=== PATIENT | female | born 1970 | race Caucasian/White ===

== ENCOUNTER 2016-11-23 10:40 | Emergency (ER) | payer BC, OTHER ==
--- NOTE | 2016-11-23 11:23 | ED NURSING NOTES ---
Clinical Report - Nurses [facility] [address] [place] [address] 11/23/2016 10:41 [id number] TRI[facility] Triage time 10:52. Acuity: LEVEL 3. Chief Complaint: INJURY TO FOREHEAD. 10:57 11/23/16. Alert. No acute distress. RENE COMA SCORE: Rene Coma Scale: 15- eyes open spontaneously (4); best verbal response- oriented x 4 (5); best motor response- obeys commands (6). --10:57 Zaria Bradford R.N. 10:51 11/23/16. BP: 112/70. HR: 67. RR: 16. O2 saturation: 100% on room air. Temp: 97.7 F (oral). Pain level now 4/10. --10:57 Zaria Bradford R.N. Weight: 53.5 kg stated. Height/Length: 60 inches Per Patient. BMI: 23. --10:54 Zaria Bradford R.N. Medications ALPRAZolam Oral. --10:56 Zaria Bradford R.N. Allergies Penicillins. --10:56 Zaria Bradford R.N. History ( called pt X2 in [facility] @1044, unable to locate pt. Pt not in waiting area or at front elevator operator. Registration staff also unable to locate patient.). --10:47 Zaria Bradford R.N. Primary physician (10:50). ( leaned forward while sitting on couch and knocked head on coffee table. C/O headache since last night, and "lazy left eye" although pupils are tracking accordingly. C/O frontal head pain.). This occurred last night. Occurred at home. 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 SOCIAL HX: Never smoker. No alcohol use or drug use. FALL RISK ASSESSMENT: Fall risk assessment completed. No fall risk identified. NUTRITIONAL RISK ASSESSMENT: The nutritional risk assessment revealed no deficiencies. FUNCTIONAL ASSESSMENT: Functional assessment: no impairments noted. LEARNING NEEDS ASSESSMENT: The learning needs assessment revealed no barriers. SKIN INTEGRITY ASSESSMENT: Skin integrity risk assessment completed. No skin integrity risk identified. --10:57 Zaria Bradford R.N. PROBLEMS: Migraine Headache. Paresthesia. Abdominal Pain. Ovarian Cyst. Atypical Chest Pain. Headache. Loss of Vision. Vertigo. Anxiety Reaction. Constipation. Immunizations. LNMP - Last Normal Menstrual Period. --10:56 Zaria Bradford R.N. ADDITIONAL SURGERIES: Colonoscopy. . --10:56 Zaria Bradford R.N. Bunion removal. --10:57 Zaria Bradford R.N. Interventions ID band on patient. To treatment room. --10:57 Zaria Bradford R.N. PHYSICAL ASSESSMENT 10:58 11/23/16. Ambulatory to room. GENERAL / NEURO / PSYCH: Alert. Oriented X 4. Appears in no acute distress. Pupillary exam: Right pupil 5mm, round and briskly reactive to light directly. Left pupil: 5mm, round and briskly reactive to light directly. HEENT: Forehead: tenderness. Head non-tender. Pupils equal, round and reactive to light. ( FAST negative). No swelling of head. Mucous membranes are pink. RESPIRATORY: Respirations not labored. CVS: Capillary refill less than 2 seconds. SKIN: Skin is warm and dry. --10:58 Zaria Bradford R.N. NURSING PROGRESS NOTES 10:58 11/23/16. The plan of care for this patient has been created. Patient gowned. Call light placed in reach. Bed placed in lowest position. Brakes of bed on. Patient ready for evaluation- chart flagged. --10:58 Zaria Bradford R.N. DISPOSITION / DISCHARGE Departure time: 1134Nov 23 2016. Condition at departure: improved and stable. No learning barriers present. Discharge instructions provided and reviewed with the patient. Reviewed medication(s) side effects, precautions, dosing and course information. Prescription(s) given to the patient. Patient verbalized understanding. Written instructions provided in Malian. The patient was discharged by the physician. She was discharged home. She left the Emergency Department ambulatory and via private vehicle. Patient driving. --15:30 Cheyanne Cosme R.N. 15:29 11/23/16. BP: 112/65. HR: 69. RR: 12. O2 saturation: 99% on room air. Temp: 98.2 F (oral). --15:30 Cheyanne Cosme R.N. Locked/Released at 11/23/2016 15:31 by Cheyanne Cosme R.N.
--- NOTE | 2016-11-23 11:23 | ED NURSING NOTES ---
Clinical Report - Nurses [facility] [address] [place] [address] 11/23/2016 10:41 [id number] TRI[facility] Triage time 10:52. Acuity: LEVEL 3. Chief Complaint: INJURY TO FOREHEAD. 10:57 11/23/16. Alert. No acute distress. RENE COMA SCORE: Rene Coma Scale: 15- eyes open spontaneously (4); best verbal response- oriented x 4 (5); best motor response- obeys commands (6). --10:57 Zaria Bradford R.N. 10:51 11/23/16. BP: 112/70. HR: 67. RR: 16. O2 saturation: 100% on room air. Temp: 97.7 F (oral). Pain level now 4/10. --10:57 Zaria Bradford R.N. Weight: 53.5 kg stated. Height/Length: 60 inches Per Patient. BMI: 23. --10:54 Zaria Bradford R.N. Medications ALPRAZolam Oral. --10:56 Zaria Bradford R.N. Allergies Penicillins. --10:56 Zaria Bradford R.N. History ( called pt X2 in [facility] @1044, unable to locate pt. Pt not in waiting area or at front line supervisor. Registration staff also unable to locate patient.). --10:47 Zaria Bradford R.N. Primary physician (10:50). ( leaned forward while sitting on couch and knocked head on coffee table. C/O headache since last night, and "lazy left eye" although pupils are tracking accordingly. C/O frontal head pain.). This occurred last night. Occurred at home. 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 SOCIAL HX: Never smoker. No alcohol use or drug use. FALL RISK ASSESSMENT: Fall risk assessment completed. No fall risk identified. NUTRITIONAL RISK ASSESSMENT: The nutritional risk assessment revealed no deficiencies. FUNCTIONAL ASSESSMENT: Functional assessment: no impairments noted. LEARNING NEEDS ASSESSMENT: The learning needs assessment revealed no barriers. SKIN INTEGRITY ASSESSMENT: Skin integrity risk assessment completed. No skin integrity risk identified. --10:57 Zaria Bradford R.N. PROBLEMS: Migraine Headache. Paresthesia. Abdominal Pain. Ovarian Cyst. Atypical Chest Pain. Headache. Loss of Vision. Vertigo. Anxiety Reaction. Constipation. Immunizations. LNMP - Last Normal Menstrual Period. --10:56 Zaria Bradford R.N. ADDITIONAL SURGERIES: Colonoscopy. . --10:56 Zaria Bradford R.N. Bunion removal. --10:57 Zaria Bradford R.N. Interventions ID band on patient. To treatment room. --10:57 Zaria Bradford R.N. PHYSICAL ASSESSMENT 10:58 11/23/16. Ambulatory to room. GENERAL / NEURO / PSYCH: Alert. Oriented X 4. Appears in no acute distress. Pupillary exam: Right pupil 5mm, round and briskly reactive to light directly. Left pupil: 5mm, round and briskly reactive to light directly. HEENT: Forehead: tenderness. Head non-tender. Pupils equal, round and reactive to light. ( FAST negative). No swelling of head. Mucous membranes are pink. RESPIRATORY: Respirations not labored. CVS: Capillary refill less than 2 seconds. SKIN: Skin is warm and dry. --10:58 Zaria Bradford R.N. NURSING PROGRESS NOTES 10:58 11/23/16. The plan of care for this patient has been created. Patient gowned. Call light placed in reach. Bed placed in lowest position. Brakes of bed on. Patient ready for evaluation- chart flagged. --10:58 Zaria Bradford R.N. DISPOSITION / DISCHARGE Departure time: 1134Nov 23 2016. Condition at departure: improved and stable. No learning barriers present. Discharge instructions provided and reviewed with the patient. Reviewed medication(s) side effects, precautions, dosing and course information. Prescription(s) given to the patient. Patient verbalized understanding. Written instructions provided in Eritrean. The patient was discharged by the physician. She was discharged home. She left the Emergency Department ambulatory and via private vehicle. Patient driving. --15:30 Cheyanne Cosme R.N. 15:29 11/23/16. BP: 112/65. HR: 69. RR: 12. O2 saturation: 99% on room air. Temp: 98.2 F (oral). --15:30 Cheyanne Cosme R.N. Locked/Released at 11/23/2016 15:31 by Cheyanne Cosme R.N.
--- NOTE | 2016-11-23 11:26 | ED CLINICAL REPORT ---
Clinical Report - Physicians/Mid Levels Located Within [facility] [address] [place] [address] 11/23/2016 10:41 Patient: LINDA CISNEROS Arrived- By private vehicle. Historian- patient. HISTORY OF PRESENT ILLNESS Location of injuries- (forehead). Chief Complaint: INJURY TO HEAD. The injury occurred today. Occurred at home. (hit head on coffee table while trying to look for something under the couch). The patient complains of moderate pain. The patient sustained a blow to the head and was dazed. No neck pain, loss of consciousness or seizure. (Reports no nausea, vomiting, changes in vision, numbness, tingling, weakness. Patient reports no other injury to the neck, chest, abdomen, pelvis, extremities, or back.). REVIEW OF SYSTEMS All systems otherwise negative, except as recorded above. PAST HISTORY See nurses notes. Medications: ALPRAZolam Oral. Allergies: Penicillins. SOCIAL HISTORY Never smoker. No alcohol use or drug use. Is a local resident. ADDITIONAL NOTES The nursing notes have been reviewed. PHYSICAL EXAM Vital Signs: 11/23/2016 10:51 BP: 112/70. HR: 67. RR: 16. O2 saturation: 100%. Temp: 97.7 F. Blood pressure normal. Oxygen saturation normal. Appearance: Alert. No acute distress. Head: No swelling of head. No Chi's sign or raccoon eyes. (Superficial abrasion to the left superior forehead). Eyes: Pupils equal, round and reactive to light. Pupillary exam: Right pupil round and reactive to light directly and consensually and with accommodation. Left pupil: round and reactive to light directly and consensually and with accommodation. EOM intact. No ocular injury. ENT: No dental injury. No hemotympanum. Pharynx normal. No malocclusion. Neck: No decreased ROM or muscle spasm in the neck. No pain with movement of head/neck. Painless ROM. Neck non-tender. No vertebral tenderness. CVS: Heart sounds normal. Pulses normal. Respiratory: Breath sounds normal. Chest nontender. Abdomen: Soft and nontender. No organomegaly. Back: No tenderness. ROM normal. Skin: Skin intact. Skin warm and dry. Normal skin color. Normal skin turgor. Extremities: Normal inspection. Pelvis stable. Extremities atraumatic. No lower extremity edema. Neuro: [place] Coma Scale: 15- eyes open spontaneously (4); best verbal response- oriented x 3 (5); best motor response- obeys commands (6). Oriented X 3. No alteration in mental status. Not disoriented. Mood/affect normal. Speech normal. No cranial nerve deficit. No motor deficit. Normal gait. No sensory deficit. PROGRESS AND PROCEDURES Course of Care: the patient is a pleasant 46-year-old female presenting for evaluation of head injury. After performing a thorough physical examination and history, do not the patient needs a CT scan of the head [place] head CT scan rule. Patient has a nonfocal neurological examination. No concerning signs for basilar skull fracture. Patient otherwise has a low mechanism of injury without any red flags for significant head injury. Had discussion with patient in regards to the risks and benefits of CT scan. The patient was also in agreement with the treatment and plan. The patient is not on any blood thinners. Conservative management with symptom control will be recommended at this time. I discussion with patient in regards to her workup, diagnosis, home care, follow-up, and return precautions. All questions answered. The patient expressed understanding of these instructions and was agreeable to them. Disposition: Discharged. Condition: good. CLINICAL IMPRESSION Mild nausea (acute). No vomiting. Minor closed head injury. No loss of consciousness. (frontal). No memory loss, altered mental status or neurological deficit. INSTRUCTIONS Warnings: GENERAL WARNINGS: Return or contact your physician immediately if your condition worsens or changes unexpectedly, if not improving as expected, or if other problems arise. Specifically return if pain, vomiting, bleeding, breathing difficulty or fever. Your Current Medications: CONTINUE TAKING THE FOLLOWING MEDICATIONS: ALPRAZolam Oral. Prescription Medications: Zofran (orally disintegrating tablets) 4 mg: take 1 orally. Dispense ten (10). No refill. Substitution is permissible. Tramadol 50 mg: take 1 orally every 8 hours as needed for pain and stiffness. Dispense fifteen (15). No refills. Zofran ODT 4 mg: take 1 orally every 8 hours as needed for nausea and vomiting. Dispense ten (10). No refill. Substitution is permissible. OTC Medications: Acetaminophen (available over the counter): take according to label instructions. Motrin (available over the counter): take according to label instructions. Follow-up: Return to the emergency department as needed. Follow up with your doctor in one week. Reason for referral: recheck today's concerns. Summary of care provided to patient via paper. Screening today revealed the patient's blood pressure to be in the normal range. The patient should follow up with a primary care provider for blood pressure management. Understanding of the discharge instructions verbalized by patient. (Electronically signed by Rashard Valenzuela Dr. 11/27/2016 5:33)
--- NOTE | 2016-11-27 05:33 | ED DISCHARGE INSTRUCTIONS ---
Patient: LINDA CISNEROS General Instructions [facility] VisitID: [id number] [place] [address] 46y, F Registration Date/Time: 11/23/2016 Mild nausea (acute). No vomiting. Minor closed head injury. No loss of consciousness. (frontal). No memory loss, altered mental status or neurological deficit. INSTRUCTIONS Warnings: GENERAL WARNINGS: Return or contact your physician immediately if your condition worsens or changes unexpectedly, if not improving as expected, or if other problems arise. Specifically return if pain, vomiting, bleeding, breathing difficulty or fever. Your Current Medications: CONTINUE TAKING THE FOLLOWING MEDICATIONS: ALPRAZolam Oral. Prescription Medications: Zofran (orally disintegrating tablets) 4 mg: take 1 orally. Dispense ten (10). No refill. Substitution is permissible. Tramadol 50 mg: take 1 orally every 8 hours as needed for pain and stiffness. Dispense fifteen (15). No refills. Zofran ODT 4 mg: take 1 orally every 8 hours as needed for nausea and vomiting. Dispense ten (10). No refill. Substitution is permissible. OTC Medications: Acetaminophen (available over the counter): take according to label instructions. Motrin (available over the counter): take according to label instructions. Follow-up: Return to the emergency department as needed. Follow up with your doctor in one week. Reason for referral: recheck today's concerns. Summary of care provided to patient via paper. Screening today revealed the patient's blood pressure to be in the normal range. The patient should follow up with a primary care provider for blood pressure management. Understanding of the discharge instructions verbalized by patient. ADDITIONAL INFORMATION Head Injury, No Wake-Up (Adult) You have had a head injury. It does not appear serious at this time. Symptoms of a more serious problem (concussion, bruising, or bleeding in the brain) may appear later. Therefore, watch for the WARNING SIGNS listed below. Home Care: Your healthcare provider will tell you whether its okay to drive. If so, you can drive yourself home. For the next day or so, be careful when driving or using heavy machinery until you are sure you have no delayed symptoms. During the next 24 hours someone must stay with you to check for the signs below. It is not necessary to stay awake or be awakened during the night. If you have swelling of the face or scalp, apply an ice pack (ice cubes in a plastic bag, wrapped in a towel) for 20 minutes. Do this every 1-2 hours until the swelling starts to go down. Do not use aspirin or ibuprofen (Motrin, Advil) after a head injury.You may use acetaminophen (Tylenol)to control pain, unless another pain medicine was prescribed. [NOTE: If you have chronic liver or kidney disease or ever had a stomach ulcer or GI bleeding, talk with your doctor before using these medicines.] For the next 24 hours: Do not take alcohol, sedatives or medicines that make you sleepy. Avoid strenuous activities. No lifting or straining. If you have had any symptoms of a concussion today (nausea, vomiting, dizziness, confusion, headache, memory loss or if you were knocked out), do not return to sports or any activity that could result in another head injury until all symptoms are gone and you have been cleared by your doctor. A second head injury before fully recovering from the first one can lead to serious brain injury. Follow Up with your doctor if symptoms are not improving after 24 hours, or as directed. [NOTE: A radiologist will review any X-rays or CT scans that were taken. We will notify you of any new findings that may affect your care.] Get Prompt Medical Attention if any of the followingWARNING SIGNS occur: Repeated vomiting Severe or worsening headache or dizziness Unusual drowsiness, or unable to awaken as usual Confusion or change in behavior or speech, memory loss, blurred vision Convulsion (seizure) Increasing scalp or face swelling Redness, warmth or pus from the swollen area Fluid drainage or bleeding from the nose or ears Concussion (No Wake-Up) A concussion happens when you hit your head with enough force to shake up the brain. This may cause you to lose consciousness be "knocked out" - but not always. Depending on how hard you hit your head, it will take from a few hours up to a few days to get better. Sometimes symptoms may last a few months or longer. This is called post-concussion syndrome. At first, you may have a headache, nausea, vomiting, or dizziness. You may also have problems concentrating or remembering things. This is normal. Symptoms should get better as the hours and days go by. Symptoms that get worse could be a sign of a more serious injury. This might be a bruise or bleeding in the brain. Thats why its important to watch for the warning signs listed below. Home care Follow these tips to help care for yourself at home: During the next day (24 hours) someone must stay with you to check for the signs below. If your face or scalp swells, apply an ice pack for 20 minutes every 1 to 2 hours. Do this until the swelling starts to go down. You can make an ice pack by putting ice cubes in a plastic bag and wrapping the bag in a towel. for 20 minutes every 1-2 hours until the swelling starts to go down. You may use acetaminophen to control pain, unless another pain medicine was prescribed. If you have chronic liver or kidney disease, talk with your doctor before using these medicines. Also talk with your doctor if you ever had a stomach ulcer or GI bleeding. For the next 24 hours: Dont drink alcohol or take sedatives or medicines that make you sleepy. Dont drive or operate machinery. Avoid doing anything strenuous. Dont lift or strain. Dont return to sports or any activity that could cause you to hit your head until all symptoms are gone and you have been cleared by your doctor. A second head injury before fully recovering from the first one can lead to serious brain injury. Follow-up care Follow up with your doctor in 1 week, or as directed. Note: A radiologist will review any X-rays or CT scans that were taken. You will be told of any new findings that may affect your care. When to seek medical care Get prompt medical attention if any of these occur: Repeated vomiting Headache or dizziness that is severe or gets worse Unusual drowsiness, or unable to wake up as usual Confusion or change in behavior or speech, or memory loss Blurred vision Convulsion (seizure) Swelling on the scalp or face that gets worse Redness, warmth, or pus from the swollen area Fluid draining from or bleeding from the nose or ears Ondansetron Oral disintegrating tablet What is this medicine? ONDANSETRON (on JAMES se kellee) is used to treat nausea and vomiting caused by chemotherapy. It is also used to prevent or treat nausea and vomiting after surgery. How should I use this medicine? These tablets are made to dissolve in the mouth. Do not try to push the tablet through the foil backing. With dry hands, peel away the foil backing and gently remove the tablet. Place the tablet in the mouth and allow it to dissolve, then swallow. While you may take these tablets with water, it is not necessary to do so. Talk to your sensory scientist regarding the use of this medicine in children. Special care may be needed. What side effects may I notice from receiving this medicine? Side effects that you should report to your doctor or health customer care agent as soon as possible: allergic reactions like skin rash, itching or hives, swelling of the face, lips, or tongue breathing problems dizziness fast or irregular heartbeat feeling faint or lightheaded, falls fever and chills swelling of the hands and feet tightness in the chest Side effects that usually do not require medical attention (report to your doctor or health customer care agent if they continue or are bothersome): constipation or diarrhea headache What may interact with this medicine? Do not take this medicine with any of the following medications: -apomorphine -cisapride -dofetilide -dronedarone -pimozide -thioridazine -ziprasidone This medicine may also interact with the following medications: -carbamazepine -phenytoin -rifampicin -tramadol -other medicines that prolong the QT interval (cause an abnormal heart rhythm) What if I miss a dose? If you miss a dose, take it as soon as you can. If it is almost time for your next dose, take only that dose. Do not take double or extra doses. Where should I keep my medicine? Keep out of the reach of children. Store between 2 and 30 degrees C (36 and 86 degrees F). Throw away any unused medicine after the expiration date. What should I tell my health care provider before I take this medicine? They need to know if you have any of these conditions: heart disease history of irregular heartbeat liver disease low levels of magnesium or potassium in the blood an unusual or allergic reaction to ondansetron, granisetron, other medicines, foods, dyes, or preservatives or trying to get breast-feeding What should I watch for while using this medicine? Check with your doctor or health customer care agent as soon as you can if you have any sign of an allergic reaction. Tramadol Hydrochloride Oral tablet What is this medicine? TRAMADOL (TRA ma dole) is a pain reliever. It is used to treat moderate to severe pain in adults. How should I use this medicine? Take this medicine by mouth with a full glass of water. Follow the directions on the prescription label. If the medicine upsets your stomach, take it with food or milk. Do not take more medicine than you are told to take. Talk to your sensory scientist regarding the use of this medicine in children. Special care may be needed. What side effects may I notice from receiving this medicine? Side effects that you should report to your doctor or health customer care agent as soon as possible: allergic reactions like skin rash, itching or hives, swelling of the face, lips, or tongue breathing difficulties, wheezing confusion itching light headedness or fainting spells redness, blistering, peeling or loosening of the skin, including inside the mouth seizures Side effects that usually do not require medical attention (report to your doctor or health customer care agent if they continue or are bothersome): constipation dizziness drowsiness headache nausea, vomiting What may interact with this medicine? Do not take this medicine with any of the following medications: MAOIs like Carbex, Eldepryl, Marplan, Nardil, and Parnate This medicine may also interact with the following medications: alcohol or medicines that contain alcohol antihistamines benzodiazepines bupropion carbamazepine or oxcarbazepine clozapine cyclobenzaprine digoxin furazolidone linezolid medicines for depression, anxiety, or psychotic disturbances medicines for migraine headache like almotriptan, eletriptan, frovatriptan, naratriptan, rizatriptan, sumatriptan, zolmitriptan medicines for pain like pentazocine, buprenorphine, butorphanol, meperidine, nalbuphine, and propoxyphene medicines for sleep muscle relaxants naltrexone phenobarbital phenothiazines like perphenazine, thioridazine, chlorpromazine, mesoridazine, fluphenazine, prochlorperazine, promazine, and trifluoperazine procarbazine warfarin What if I miss a dose? If you miss a dose, take it as soon as you can. If it is almost time for your next dose, take only that dose. Do not take double or extra doses. Where should I keep my medicine? Keep out of the reach of children. Store at room temperature between 15 and 30 degrees C (59 and 86 degrees F). Keep container tightly closed. Throw away any unused medicine after the expiration date. What should I tell my health care provider before I take this medicine? They need to know if you have any of these conditions: brain tumor depression drug abuse or addiction head injury if you frequently drink alcohol containing drinks kidney disease or trouble passing urine liver disease lung disease, asthma, or breathing problems seizures or epilepsy suicidal thoughts, plans, or attempt; a previous suicide attempt by you or a family member an unusual or allergic reaction to tramadol, codeine, other medicines, foods, dyes, or preservatives or trying to get breast-feeding What should I watch for while using this medicine? Tell your doctor or health customer care agent if your pain does not go away, if it gets worse, or if you have new or a different type of pain. You may develop tolerance to the medicine. Tolerance means that you will need a higher dose of the medicine for pain relief. Tolerance is normal and is expected if you take this medicine for a long time. Do not suddenly stop taking your medicine because you may develop a severe reaction. Your body becomes used to the medicine. This does NOT mean you are addicted. Addiction is a behavior related to getting and using a drug for a non-medical reason. If you have pain, you have a medical reason to take pain medicine. Your doctor will tell you how much medicine to take. If your doctor wants you to stop the medicine, the dose will be slowly lowered over time to avoid any side effects. You may get drowsy or dizzy. Do not drive, use machinery, or do anything that needs mental alertness until you know how this medicine affects you. Do not stand or sit up quickly, especially if you are an older patient. This reduces the risk of dizzy or fainting spells. Alcohol can increase or decrease the effects of this medicine. Avoid alcoholic drinks. You may have constipation. Try to have a bowel movement at least every 2 to 3 days. If you do not have a bowel movement for 3 days, call your doctor or health customer care agent. Your mouth may get dry. Chewing sugarless gum or sucking hard candy, and drinking plenty of water may help. Contact your doctor if the problem does not go away or is severe. Ondansetron Oral disintegrating tablet What is this medicine? ONDANSETRON (on JAMES se kellee) is used to treat nausea and vomiting caused by chemotherapy. It is also used to prevent or treat nausea and vomiting after surgery. How should I use this medicine? These tablets are made to dissolve in the mouth. Do not try to push the tablet through the foil backing. With dry hands, peel away the foil backing and gently remove the tablet. Place the tablet in the mouth and allow it to dissolve, then swallow. While you may take these tablets with water, it is not necessary to do so. Talk to your sensory scientist regarding the use of this medicine in children. Special care may be needed. What side effects may I notice from receiving this medicine? Side effects that you should report to your doctor or health customer care agent as soon as possible: allergic reactions like skin rash, itching or hives, swelling of the face, lips, or tongue breathing problems dizziness fast or irregular heartbeat feeling faint or lightheaded, falls fever and chills swelling of the hands and feet tightness in the chest Side effects that usually do not require medical attention (report to your doctor or health customer care agent if they continue or are bothersome): constipation or diarrhea headache What may interact with this medicine? Do not take this medicine with any of the following medications: -apomorphine -cisapride -dofetilide -dronedarone -pimozide -thioridazine -ziprasidone This medicine may also interact with the following medications: -carbamazepine -phenytoin -rifampicin -tramadol -other medicines that prolong the QT interval (cause an abnormal heart rhythm) What if I miss a dose? If you miss a dose, take it as soon as you can. If it is almost time for your next dose, take only that dose. Do not take double or extra doses. Where should I keep my medicine? Keep out of the reach of children. Store between 2 and 30 degrees C (36 and 86 degrees F). Throw away any unused medicine after the expiration date. What should I tell my health care provider before I take this medicine? They need to know if you have any of these conditions: heart disease history of irregular heartbeat liver disease low levels of magnesium or potassium in the blood an unusual or allergic reaction to ondansetron, granisetron, other medicines, foods, dyes, or preservatives or trying to get breast-feeding What should I watch for while using this medicine? Check with your doctor or health customer care agent as soon as you can if you have any sign of an allergic reaction. You have been given the following additional information: HEAD INJURY, No Wake-Up (Adult) Concussion, No Wake-Up Ondansetron Oral disintegrating tablet Tramadol Hydrochloride Oral tablet Ondansetron Oral disintegrating tablet (Electronically signed by Rashard Valenzuela Dr. 11/27/2016 5:33)
--- NOTE | 2016-11-27 05:34 | ED MAR SUMMARY ---
..... Medication Administration Record [facility] [address], [place] [id number] Patient: LINDA CISNEROS Visit ID: [id number] 46y, F Weight: 53.5 kg Height/Length: 60 in BMI: 23 ALLERGIES: Penicillins
--- NOTE | 2016-11-27 05:34 | ED MAR SUMMARY ---
..... Medication Administration Record [facility] [address] [place], [place] [id number] Patient: LINDA CISNEROS Visit ID: [id number] 46y, F Weight: 53.5 kg Height/Length: 60 in BMI: 23 ALLERGIES: Penicillins
--- NOTE | 2016-11-27 05:34 | ED MED RECONCILIATION SUMMARY ---
Patient: LINDA CISNEROS Medication Reconciliation Report [facility] VisitID: [id number] [address] [place] [address] 46y, F Registration Date/Time: 11/23/2016 Weight: 53.5 kg Height/Length: 60 in. BMI: 23.0 ALLERGIES: Penicillins The patient's Home Medications are listed below: CONTINUE TAKING THE FOLLOWING MEDICATIONS: ALPRAZolam Oral The source(s) of the original Home Medication information: Not obtained. The following Medications were given to the patient in the Emergency Department: None. The following Medications were prescribed to the patient: Acetaminophen (available over the counter): take according to label instructions. -- Rashard Valenzuela Dr. Motrin (available over the counter): take according to label instructions. -- Rashard Valenzuela Dr. Zofran (orally disintegrating tablets) 4 mg: take 1 orally. Dispense ten (10). No refill. Substitution is permissible. -- Rashard Valenzuela Dr. Tramadol 50 mg: take 1 orally every 8 hours as needed for pain and stiffness. Dispense fifteen (15). No refills. -- Rashard Valenzuela Dr. Zofran ODT 4 mg: take 1 orally every 8 hours as needed for nausea and vomiting. Dispense ten (10). No refill. Substitution is permissible. -- Rashard Valenzuela Dr.
--- NOTE | 2016-11-27 05:34 | ED MED RECONCILIATION SUMMARY ---
Patient: LINDA CISNEROS Medication Reconciliation Report [facility] VisitID: [id number] [address] [place] [address] 46y, F Registration Date/Time: 11/23/2016 Weight: 53.5 kg Height/Length: 60 in. BMI: 23.0 ALLERGIES: Penicillins The patient's Home Medications are listed below: CONTINUE TAKING THE FOLLOWING MEDICATIONS: ALPRAZolam Oral The source(s) of the original Home Medication information: Not obtained. The following Medications were given to the patient in the Emergency Department: None. The following Medications were prescribed to the patient: Acetaminophen (available over the counter): take according to label instructions. -- Rashard Valenzuela Dr. Motrin (available over the counter): take according to label instructions. -- Rashard Valenzuela Dr. Zofran (orally disintegrating tablets) 4 mg: take 1 orally. Dispense ten (10). No refill. Substitution is permissible. -- Rashard Valenzuela Dr. Tramadol 50 mg: take 1 orally every 8 hours as needed for pain and stiffness. Dispense fifteen (15). No refills. -- Rashard Valenzuela Dr. Zofran ODT 4 mg: take 1 orally every 8 hours as needed for nausea and vomiting. Dispense ten (10). No refill. Substitution is permissible. -- Rashard Valenzuela Dr.
== END 2016-11-23 11:35 | disposition home or self-care (01) ==
LOC: ED SRH 10:40
DX: S09.90XA Unspecified injury of head, initial encounter (principal); R11.0 Nausea; W22.8XXA Striking against or struck by other objects, initial encounter; Y93.89 Activity, other specified; Y92.009 Unspecified place in unspecified non-institutional (private) residence as the place of occurrence of the external cause; Y99.9 Unspecified external cause status; Z88.0 Allergy status to penicillin

== ENCOUNTER 2016-11-26 12:59 | Emergency (ER) | payer BC, OTHER ==
--- NOTE | 2016-11-26 13:57 | DIAGNOSTIC IMAGING REPORT ---
PROCEDURE: CT HEAD WITHOUT CONTRAST INDICATION: TRAUMA/INJURY TECHNIQUE: Axial CT images were acquired through the head. Coronal and sagittal reformations were created. COMPARISON: Head CT 05/31/2016 09/20/2013 FINDINGS: No intracranial hemorrhage or extraaxial fluid collections. Ventricles are normal in size, shape and position. There is no mass, mass effect or midline shift. The cardona-white matter differentiation is normal. There is no edema. The calvarium is intact. The paranasal sinuses and mastoid air cells are normally aerated. The extracranial soft tissues and orbits are normal. IMPRESSION: 1. No CT evidence of acute intracranial process. 2. Findings discussed with emergency department at 02:[address] scans at this facility use dose modulation, iterative reconstruction, and/or weight-based dosing when appropriate to reduce radiation dose to as low as reasonably achievable.
--- NOTE | 2016-11-26 14:11 | ED NURSING NOTES ---
Clinical Report - Nurses [facility] [address] [place] [address] 11/26/2016 13:02 [id number] TRI[facility] Triage time 13:31. Acuity: LEVEL 4. Chief Complaint: HEADACHE. Alert. No acute distress. RENE COMA SCORE: Rene Coma Scale: 15- eyes open spontaneously (4); best verbal response- oriented x 4 (5); best motor response- obeys commands (6). --14:16 Jessie Connolly R.N. 13:31 11/26/16. BP: 126/77. HR: 65. RR: 18. O2 saturation: 100% on room air. Temp: 97.7 F (oral). Pain level now: 410. --14:16 Jessie Connolly R.N. Weight: 53.5 kg stated. Height/Length: 60 inches Per Patient. BMI: 23. --14:15 Jessie Connolly R.N. Medications Vitamins/Minerals Oral. --14:14 Jessie Connolly R.N. Medication/allergy information source: the patient. --14:16 Jessie Connolly R.N. Allergies No Known Drug Allergy. --14:14 Jessie Connolly R.N. History Arrived by private vehicle. Historian: patient. Unaccompanied. Primary physician (Dionne). This started . ( leaned forward and struck head on table). PAST MEDICAL HX: Last normal menstrual period- Oct 2016. SOCIAL HX: Smoker- current status unknown (no). No alcohol use or drug use. FALL RISK ASSESSMENT: Fall risk assessment completed. No fall risk identified. FUNCTIONAL ASSESSMENT: Functional assessment: no impairments noted. LEARNING NEEDS ASSESSMENT: The learning needs assessment revealed no barriers. --14:16 Jessie Connolly R.N. PROBLEMS: Nausea. Migraine Headache. Paresthesia. Abdominal Pain. Ovarian Cyst. Atypical Chest Pain. Headache. Loss of Vision. Vertigo. Anxiety Reaction. Constipation. Immunizations. LNMP - Last Normal Menstrual Period. --14:14 Jessie Connolly R.N. ADDITIONAL SURGERIES: Bunion removal. Colonoscopy. . --14:14 Jessie Connolly R.N. Assessment GENERAL / NEURO / PSYCH: Alert. Oriented X 4. Appears in no acute distress. Patient appears calm and cooperative. RESPIRATORY: Respirations not labored. SKIN: Skin is warm and dry. --14:16 Jessie Connolly R.N. Interventions ID band on patient. To treatment room. --14:16 Jessie Connolly R.N. PHYSICAL ASSESSMENT 14:17 11/26/16. Ambulatory to room. Patient gowned. GENERAL / NEURO / PSYCH: Alert. Oriented X 4. Appears in no acute distress. Speech within normal limits. RESPIRATORY: Respirations not labored. SKIN: Skin is warm and dry. --14:17 Jessie Connolly R.N. NURSING PROGRESS NOTES 13:39 11/26/16. Patient gowned. Head of bed elevated. Lights dimmed. Call light placed in reach. Side rails up x 1. Bed placed in lowest position. Brakes of bed on. --13:39 Jessie Connolly R.N. Patient transported to [place] by stretcher with tech. --13:39 Jessie Connolly R.N. Patient returned from CT by stretcher. --14:17 Jessie Connolly R.N. 14:29 11/26/2016 Zofran ODT (Ondansetron) PO 4 mg given. Allergies verified and confirmed 5 rights. --14:29 Chuyita Plascencia 14:29 11/26/2016 Motrin PO 800 mg given. Allergies verified and confirmed 5 rights. --14:29 Chuyita Plascencia 14:29 11/26/2016 Tylenol (Acetaminophen) PO 650 mg given. Allergies verified and confirmed 5 rights. --14:29 Chuyita Plascencia. DISPOSITION / DISCHARGE Departure time: 1430. Condition at departure: improved and stable. No learning barriers present. Discharge instructions provided and reviewed with the patient. Reviewed medication(s). Patient verbalized understanding. Written instructions provided in Chadian. The patient was discharged by the physician assistant operations manager. She was discharged home. She left the Emergency Department ambulatory and via private vehicle. Patient driving. --14:30 Chuyita Plascencia 14:30 11/26/16. BP: 98/56. HR: 58. RR: 14. O2 saturation: 99%. Pain level now 02/14. --14:30 Chuyita Plascencia. Locked/Released at 11/26/2016 14:31 by Chuyita Plascencia,
--- NOTE | 2016-11-26 14:11 | ED ORDER SUMMARY ---
..... Patient: ILNDA CISNEROS OrderSheet [facility] VisitID: [id number] [address] [place] [address] 46y, F Registration Date/Time: 11/26/2016 ORDER SHEET Weight: 53.5 kg (stated) Allergies: No Known Drug Allergy GENERAL ORDERS: CT Head wo Cont Urgent (13:32 11/26/2016 EKoroleva P.A.-C) ([facility] MEDICATION ORDERS: Zofran ODT PO 4 mg (NOW) (14:14 11/26/2016 EKoroleva P.A.-C) (14:29 Donna) Motrin PO 800 mg (NOW) (14:14 11/26/2016 EKoroleva P.A.-C) (14:29 Donna) Tylenol PO 650 mg (NOW) (14:14 11/26/2016 EKoroleva P.A.-C) ([facility] IV FLUIDS: ORDER SHEET NOTES: [Electronically signed by Helena Edge P.A.-C (14:14 11/26/2016)] [Electronically signed by Chuyita Plascencia (14:31 11/26/2016)] [Electronically locked/signed by Chuyita Plascencia (14:11/26/2016)]
--- NOTE | 2016-11-26 14:11 | ED ORDER SUMMARY ---
..... Patient: LINDA CISNEROS OrderSheet [facility] VisitID: [id number] [address] [place] [address] 46y, F Registration Date/Time: 11/26/2016 ORDER SHEET Weight: 53.5 kg (stated) Allergies: No Known Drug Allergy GENERAL ORDERS: CT Head wo Cont Urgent (13:32 11/26/2016 EKoroleva P.A.-C) ([facility] MEDICATION ORDERS: Zofran ODT PO 4 mg (NOW) (14:14 11/26/2016 EKoroleva P.A.-C) (14:29 Donna) Motrin PO 800 mg (NOW) (14:14 11/26/2016 EKoroleva P.A.-C) (14:29 Donna) Tylenol PO 650 mg (NOW) (14:14 11/26/2016 EKoroleva P.A.-C) (14:29 [facility]) IV FLUIDS: ORDER SHEET NOTES: [Electronically signed by Helena Edge P.A.-C (14:14 11/26/2016)] [Electronically signed by Chuyita Plascencia (14:31 11/26/2016)] [Electronically locked/signed by Chuyita Plascencia (14:11/26/2016)]
--- NOTE | 2016-11-26 14:11 | ED CLINICAL REPORT ---
Clinical Report - Physicians/Mid Levels [facility] [address] [place] [address] 11/26/2016 13:02 [id number] Time Seen: 13:33 Nov 26 2016. Arrived- By private vehicle. Historian- patient. HISTORY OF PRESENT ILLNESS Location of injuries- (since fall on the ). Chief Complaint: INJURY TO HEAD. The patient sustained a blow. Fell. Occurred at home. The patient complains of moderate pain. The patient sustained a blow to the head and was dazed. No neck pain, loss of consciousness or seizure. (Patient fell from a seated position, into a marble table, incident occurred on the , consistent headache, has been taking Tylenol with no relief.). REVIEW OF SYSTEMS No hearing loss, bladder dysfunction or laceration. She has had nausea. All systems otherwise negative, except as recorded above. SOCIAL HISTORY No alcohol use. ADDITIONAL NOTES The nursing notes have been reviewed. PHYSICAL EXAM Appearance: Alert. No acute distress. No backboard or C-collar. (BP: 126/77. HR: 65. RR: 18. O2 saturation: 100% on room air. Temp: 97.7 F (oral).). Head: Head non-tender. No swelling of head. ENT: No dental injury. Neck: Painless ROM. Neck non-tender. No vertebral tenderness. CVS: Heart sounds normal. Pulses normal. Respiratory: Breath sounds normal. Chest nontender. No chest wall injury. Abdomen: Soft and nontender. Back: No tenderness. ROM normal. No tenderness or vertebral point tenderness. Skin: Skin intact. Skin warm. Extremities: Pelvis stable. Neuro: [place] Coma Scale: 15- eyes open spontaneously (4); best verbal response- oriented x 3 (5); best motor response- obeys commands (6). Oriented X 3. Mood/affect normal. Speech normal. No motor deficit. Normal gait. No sensory deficit. LABS, X-RAYS, AND EKG CT Head: (IMPRESSION: 1. No CT evidence of acute intracranial process. 2. Findings discussed with emergency department at 02:[address] scans at this facility use dose modulation, iterative reconstruction, and/or weight-based dosing when appropriate to reduce radiation dose to as low as reasonably achievable. Electronically Final signed by:Raul Jones MD 11/26/2016 2:00:48 PM). PROGRESS AND PROCEDURES Course of Care: Full range of motion of the cervical spine, patient with no CT evidence of hemorrhage, symptoms of the headache developed after fall, suspect concussion post fall. Patient otherwise stable, negative neuro exam in the ER. No otherwise systemic symptoms, no meningeal signs. Patient is stable. The patient's symptoms are unchanged. Patient/family counseled. Disposition: Discharged. Condition: good. CLINICAL IMPRESSION Head injury. INSTRUCTIONS Prescription Medications: Zofran (orally disintegrating tablets) 4 mg: take 1 orally every 6 hours for 3 days as needed for nausea. Dispense ten (10). No refill. Substitution is permissible. Ibuprofen 800 mg tablets: take 1 tablet orally every 8 hours as needed for pain. Dispense fifteen (15). No refill. OTC Medications: Tylenol ER 650 mg (available over the counter): take 1 orally every 6 hours for 3 days, as needed for fever. Dispense ten (10). No refill. Substitution is permissible. Follow-up: Follow up with your doctor Tuesday. Understanding of the discharge instructions verbalized. (Electronically signed by Helena Edge P.A.-C 11/26/2016 14:14)
--- NOTE | 2016-11-26 14:11 | ED CLINICAL REPORT ---
Clinical Report - Physicians/Mid Levels [facility] [address] [place] [address] 11/26/2016 13:02 [id number] Time Seen: 13:33 Nov 26 2016. Arrived- By private vehicle. Historian- patient. HISTORY OF PRESENT ILLNESS Location of injuries- (since fall on the ). Chief Complaint: INJURY TO HEAD. The patient sustained a blow. Fell. Occurred at home. The patient complains of moderate pain. The patient sustained a blow to the head and was dazed. No neck pain, loss of consciousness or seizure. (Patient fell from a seated position, into a marble table, incident occurred on the , consistent headache, has been taking Tylenol with no relief.). REVIEW OF SYSTEMS No hearing loss, bladder dysfunction or laceration. She has had nausea. All systems otherwise negative, except as recorded above. SOCIAL HISTORY No alcohol use. ADDITIONAL NOTES The nursing notes have been reviewed. PHYSICAL EXAM Appearance: Alert. No acute distress. No backboard or C-collar. (BP: 126/77. HR: 65. RR: 18. O2 saturation: 100% on room air. Temp: 97.7 F (oral).). Head: Head non-tender. No swelling of head. ENT: No dental injury. Neck: Painless ROM. Neck non-tender. No vertebral tenderness. CVS: Heart sounds normal. Pulses normal. Respiratory: Breath sounds normal. Chest nontender. No chest wall injury. Abdomen: Soft and nontender. Back: No tenderness. ROM normal. No tenderness or vertebral point tenderness. Skin: Skin intact. Skin warm. Extremities: Pelvis stable. Neuro: [place] Coma Scale: 15- eyes open spontaneously (4); best verbal response- oriented x 3 (5); best motor response- obeys commands (6). Oriented X 3. Mood/affect normal. Speech normal. No motor deficit. Normal gait. No sensory deficit. LABS, X-RAYS, AND EKG CT Head: (IMPRESSION: 1. No CT evidence of acute intracranial process. 2. Findings discussed with emergency department at 02:[address] scans at this facility use dose modulation, iterative reconstruction, and/or weight-based dosing when appropriate to reduce radiation dose to as low as reasonably achievable. Electronically Final signed by:Raul Jones MD 11/26/2016 2:00:48 PM). PROGRESS AND PROCEDURES Course of Care: Full range of motion of the cervical spine, patient with no CT evidence of hemorrhage, symptoms of the headache developed after fall, suspect concussion post fall. Patient otherwise stable, negative neuro exam in the ER. No otherwise systemic symptoms, no meningeal signs. Patient is stable. The patient's symptoms are unchanged. Patient/family counseled. Disposition: Discharged. Condition: good. CLINICAL IMPRESSION Head injury. INSTRUCTIONS Prescription Medications: Zofran (orally disintegrating tablets) 4 mg: take 1 orally every 6 hours for 3 days as needed for nausea. Dispense ten (10). No refill. Substitution is permissible. Ibuprofen 800 mg tablets: take 1 tablet orally every 8 hours as needed for pain. Dispense fifteen (15). No refill. OTC Medications: Tylenol ER 650 mg (available over the counter): take 1 orally every 6 hours for 3 days, as needed for fever. Dispense ten (10). No refill. Substitution is permissible. Follow-up: Follow up with your doctor Tuesday. Understanding of the discharge instructions verbalized. (Electronically signed by Helena Edge P.A.-C 11/26/2016 14:14)
--- NOTE | 2016-11-26 14:11 | ED NURSING NOTES ---
Clinical Report - Nurses [facility] [address] [place] [address] 11/26/2016 13:02 [id number] Triage time 13:31. Acuity: LEVEL 4. Chief Complaint: HEADACHE. Alert. No acute distress. RENE COMA SCORE: [place] Coma Scale: 15- eyes open spontaneously (4); best verbal response- oriented x 4 (5); best motor response- obeys commands (6). --14:16 Jessie Connolly R.N. 13:31 11/26/16. BP: 126/77. HR: 65. RR: 18. O2 saturation: 100% on room air. Temp: 97.7 F (oral). Pain level now: 410. --14:16 Jessie Connolly R.N. Weight: 53.5 kg stated. Height/Length: 60 inches Per Patient. BMI: 23. --14:15 Jessie Connolly R.N. Medications Vitamins/Minerals Oral. --14:14 Jessie Connolly R.N. Medication/allergy information source: the patient. --14:16 Jessie Connolly R.N. Allergies No Known Drug Allergy. --14:14 Jessie Connolly R.N. History Arrived by private vehicle. Historian: patient. Unaccompanied. Primary physician (Dionne). This started . ( leaned forward and struck head on table). PAST MEDICAL HX: Last normal menstrual period- Oct 2016. SOCIAL HX: Smoker- current status unknown (no). No alcohol use or drug use. FALL RISK ASSESSMENT: Fall risk assessment completed. No fall risk identified. FUNCTIONAL ASSESSMENT: Functional assessment: no impairments noted. LEARNING NEEDS ASSESSMENT: The learning needs assessment revealed no barriers. --14:16 Jessie Connolly R.N. PROBLEMS: Nausea. Migraine Headache. Paresthesia. Abdominal Pain. Ovarian Cyst. Atypical Chest Pain. Headache. Loss of Vision. Vertigo. Anxiety Reaction. Constipation. Immunizations. LNMP - Last Normal Menstrual Period. --14:14 Jessie Connolly R.N. ADDITIONAL SURGERIES: Bunion removal. Colonoscopy. . --14:14 Jessie Connolly R.N. Assessment GENERAL / NEURO / PSYCH: Alert. Oriented X 4. Appears in no acute distress. Patient appears calm and cooperative. RESPIRATORY: Respirations not labored. SKIN: Skin is warm and dry. --14:16 Jessie Connolly R.N. Interventions ID band on patient. To treatment room. --14:16 Jessie Connolly R.N. PHYSICAL ASSESSMENT 14:17 11/26/16. Ambulatory to room. Patient gowned. GENERAL / NEURO / PSYCH: Alert. Oriented X 4. Appears in no acute distress. Speech within normal limits. RESPIRATORY: Respirations not labored. SKIN: Skin is warm and dry. --14:17 Jessie Connolly R.N. NURSING PROGRESS NOTES 13:39 11/26/16. Patient gowned. Head of bed elevated. Lights dimmed. Call light placed in reach. Side rails up x 1. Bed placed in lowest position. Brakes of bed on. --13:39 Jessie Connolly R.N. Patient transported to [place] by stretcher with tech. --13:39 Jessie Connolly R.N. Patient returned from CT by stretcher. --14:17 Jessie Connolly R.N. 14:29 11/26/2016 Zofran ODT (Ondansetron) PO 4 mg given. Allergies verified and confirmed 5 rights. --14:29 Chuyita Plascencia 14:29 11/26/2016 Motrin PO 800 mg given. Allergies verified and confirmed 5 rights. --14:29 Chuyita Plascencia 14:29 11/26/2016 Tylenol (Acetaminophen) PO 650 mg given. Allergies verified and confirmed 5 rights. --14:29 Chuyita Plascencia. DISPOSITION / DISCHARGE Departure time: 1430. Condition at departure: improved and stable. No learning barriers present. Discharge instructions provided and reviewed with the patient. Reviewed medication(s). Patient verbalized understanding. Written instructions provided in [place]. The patient was discharged by the physician him assistant. She was discharged home. She left the Emergency Department ambulatory and via private vehicle. Patient driving. --14:30 Chuyita Plascencia 14:30 11/26/16. BP: 98/56. HR: 58. RR: 14. O2 saturation: 99%. Pain level now 02/14. --14:30 Chuyita Plascencia. Locked/Released at 11/26/2016 14:31 by Chuyita Plascencia,
--- NOTE | 2016-11-26 14:32 | ED MED RECONCILIATION SUMMARY ---
Patient: LINDA CISNEROS Medication Reconciliation Report [facility] VisitID: [id number] [address] [place] [address] 46y, F Registration Date/Time: 11/26/2016 Weight: 53.5 kg Height/Length: 60 in. BMI: 23.0 ALLERGIES: No Known Drug Allergy The patient's Home Medications are listed below: THE FOLLOWING MEDICATIONS NEED TO BE RECONCILED: Vitamins/Minerals Oral The source(s) of the original Home Medication information: patient The following Medications were given to the patient in the Emergency Department: Zofran ODT [PO] PO 4 mg, administered: 11/26/2016 2:29:00 PM Motrin [PO] PO 800 mg, administered: 11/26/2016 2:29:00 PM Tylenol [PO] PO 650 mg, administered: 11/26/2016 2:29:00 PM The following Medications were prescribed to the patient: Zofran (orally disintegrating tablets) 4 mg: take 1 orally every 6 hours for 3 days as needed for nausea. Dispense ten (10). No refill. Substitution is permissible. -- Helena Edge, P.A.-C Ibuprofen 800 mg tablets: take 1 tablet orally every 8 hours as needed for pain. Dispense fifteen (15). No refill. -- Helena Edge, P.A.-C Tylenol ER 650 mg (available over the counter): take 1 orally every 6 hours for 3 days, as needed for fever. Dispense ten (10). No refill. Substitution is permissible. -- Helena Edge, P.A.-C
--- NOTE | 2016-11-26 14:32 | ED MED RECONCILIATION SUMMARY ---
Patient: LINDA CISNEROS Medication Reconciliation Report [facility] VisitID: [id number] [address] [place] [address] 46y, F Registration Date/Time: 11/26/2016 Weight: 53.5 kg Height/Length: 60 in. BMI: 23.0 ALLERGIES: No Known Drug Allergy The patient's Home Medications are listed below: THE FOLLOWING MEDICATIONS NEED TO BE RECONCILED: Vitamins/Minerals Oral The source(s) of the original Home Medication information: patient The following Medications were given to the patient in the Emergency Department: Zofran ODT [PO] PO 4 mg, administered: 11/26/2016 2:29:00 PM Motrin [PO] PO 800 mg, administered: 11/26/2016 2:29:00 PM Tylenol [PO] PO 650 mg, administered: 11/26/2016 2:29:00 PM The following Medications were prescribed to the patient: Zofran (orally disintegrating tablets) 4 mg: take 1 orally every 6 hours for 3 days as needed for nausea. Dispense ten (10). No refill. Substitution is permissible. -- Helena Edge, P.A.-C Ibuprofen 800 mg tablets: take 1 tablet orally every 8 hours as needed for pain. Dispense fifteen (15). No refill. -- Helena Edge, P.A.-C Tylenol ER 650 mg (available over the counter): take 1 orally every 6 hours for 3 days, as needed for fever. Dispense ten (10). No refill. Substitution is permissible. -- Helena Edge, P.A.-C
--- NOTE | 2016-11-26 14:32 | ED DISCHARGE INSTRUCTIONS ---
Patient: LINDA CISNEROS General Instructions [facility] VisitID: [id number] [address] [place] [address] 46y, F Registration Date/Time: 11/26/2016 Head injury. INSTRUCTIONS Prescription Medications: Zofran (orally disintegrating tablets) 4 mg: take 1 orally every 6 hours for 3 days as needed for nausea. Dispense ten (10). No refill. Substitution is permissible. Ibuprofen 800 mg tablets: take 1 tablet orally every 8 hours as needed for pain. Dispense fifteen (15). No refill. OTC Medications: Tylenol ER 650 mg (available over the counter): take 1 orally every 6 hours for 3 days, as needed for fever. Dispense ten (10). No refill. Substitution is permissible. Follow-up: Follow up with your doctor Tuesday. Understanding of the discharge instructions verbalized. ADDITIONAL INFORMATION Head Injury, No Wake-Up (Adult) You have had a head injury. It does not appear serious at this time. Symptoms of a more serious problem (concussion, bruising, or bleeding in the brain) may appear later. Therefore, watch for the WARNING SIGNS listed below. Home Care: Your healthcare provider will tell you whether its okay to drive. If so, you can drive yourself home. For the next day or so, be careful when driving or using heavy machinery until you are sure you have no delayed symptoms. During the next 24 hours someone must stay with you to check for the signs below. It is not necessary to stay awake or be awakened during the night. If you have swelling of the face or scalp, apply an ice pack (ice cubes in a plastic bag, wrapped in a towel) for 20 minutes. Do this every 1-2 hours until the swelling starts to go down. Do not use aspirin or ibuprofen (Motrin, Advil) after a head injury.You may use acetaminophen (Tylenol)to control pain, unless another pain medicine was prescribed. [NOTE: If you have chronic liver or kidney disease or ever had a stomach ulcer or GI bleeding, talk with your doctor before using these medicines.] For the next 24 hours: Do not take alcohol, sedatives or medicines that make you sleepy. Avoid strenuous activities. No lifting or straining. If you have had any symptoms of a concussion today (nausea, vomiting, dizziness, confusion, headache, memory loss or if you were knocked out), do not return to sports or any activity that could result in another head injury until all symptoms are gone and you have been cleared by your doctor. A second head injury before fully recovering from the first one can lead to serious brain injury. Follow Up with your doctor if symptoms are not improving after 24 hours, or as directed. [NOTE: A radiologist will review any X-rays or CT scans that were taken. We will notify you of any new findings that may affect your care.] Get Prompt Medical Attention if any of the followingWARNING SIGNS occur: Repeated vomiting Severe or worsening headache or dizziness Unusual drowsiness, or unable to awaken as usual Confusion or change in behavior or speech, memory loss, blurred vision Convulsion (seizure) Increasing scalp or face swelling Redness, warmth or pus from the swollen area Fluid drainage or bleeding from the nose or ears Concussion (No Wake-Up) A concussion happens when you hit your head with enough force to shake up the brain. This may cause you to lose consciousness be "knocked out" - but not always. Depending on how hard you hit your head, it will take from a few hours up to a few days to get better. Sometimes symptoms may last a few months or longer. This is called post-concussion syndrome. At first, you may have a headache, nausea, vomiting, or dizziness. You may also have problems concentrating or remembering things. This is normal. Symptoms should get better as the hours and days go by. Symptoms that get worse could be a sign of a more serious injury. This might be a bruise or bleeding in the brain. Thats why its important to watch for the warning signs listed below. Home care Follow these tips to help care for yourself at home: During the next day (24 hours) someone must stay with you to check for the signs below. If your face or scalp swells, apply an ice pack for 20 minutes every 1 to 2 hours. Do this until the swelling starts to go down. You can make an ice pack by putting ice cubes in a plastic bag and wrapping the bag in a towel. for 20 minutes every 1-2 hours until the swelling starts to go down. You may use acetaminophen to control pain, unless another pain medicine was prescribed. If you have chronic liver or kidney disease, talk with your doctor before using these medicines. Also talk with your doctor if you ever had a stomach ulcer or GI bleeding. For the next 24 hours: Dont drink alcohol or take sedatives or medicines that make you sleepy. Dont drive or operate machinery. Avoid doing anything strenuous. Dont lift or strain. Dont return to sports or any activity that could cause you to hit your head until all symptoms are gone and you have been cleared by your doctor. A second head injury before fully recovering from the first one can lead to serious brain injury. Follow-up care Follow up with your doctor in 1 week, or as directed. Note: A radiologist will review any X-rays or CT scans that were taken. You will be told of any new findings that may affect your care. When to seek medical care Get prompt medical attention if any of these occur: Repeated vomiting Headache or dizziness that is severe or gets worse Unusual drowsiness, or unable to wake up as usual Confusion or change in behavior or speech, or memory loss Blurred vision Convulsion (seizure) Swelling on the scalp or face that gets worse Redness, warmth, or pus from the swollen area Fluid draining from or bleeding from the nose or ears Ondansetron Oral disintegrating tablet What is this medicine? ONDANSETRON (on JAMES se kellee) is used to treat nausea and vomiting caused by chemotherapy. It is also used to prevent or treat nausea and vomiting after surgery. How should I use this medicine? These tablets are made to dissolve in the mouth. Do not try to push the tablet through the foil backing. With dry hands, peel away the foil backing and gently remove the tablet. Place the tablet in the mouth and allow it to dissolve, then swallow. While you may take these tablets with water, it is not necessary to do so. Talk to your senior science consultant regarding the use of this medicine in children. Special care may be needed. What side effects may I notice from receiving this medicine? Side effects that you should report to your doctor or health respiratory care specialist as soon as possible: allergic reactions like skin rash, itching or hives, swelling of the face, lips, or tongue breathing problems dizziness fast or irregular heartbeat feeling faint or lightheaded, falls fever and chills swelling of the hands and feet tightness in the chest Side effects that usually do not require medical attention (report to your doctor or health respiratory care specialist if they continue or are bothersome): constipation or diarrhea headache What may interact with this medicine? Do not take this medicine with any of the following medications: -apomorphine -cisapride -dofetilide -dronedarone -pimozide -thioridazine -ziprasidone This medicine may also interact with the following medications: -carbamazepine -phenytoin -rifampicin -tramadol -other medicines that prolong the QT interval (cause an abnormal heart rhythm) What if I miss a dose? If you miss a dose, take it as soon as you can. If it is almost time for your next dose, take only that dose. Do not take double or extra doses. Where should I keep my medicine? Keep out of the reach of children. Store between 2 and 30 degrees C (36 and 86 degrees F). Throw away any unused medicine after the expiration date. What should I tell my health care provider before I take this medicine? They need to know if you have any of these conditions: heart disease history of irregular heartbeat liver disease low levels of magnesium or potassium in the blood an unusual or allergic reaction to ondansetron, granisetron, other medicines, foods, dyes, or preservatives or trying to get breast-feeding What should I watch for while using this medicine? Check with your doctor or health respiratory care specialist as soon as you can if you have any sign of an allergic reaction. Ibuprofen Oral tablet What is this medicine? IBUPROFEN (eye BYOO proe fen) is a non-steroidal anti-inflammatory drug (NSAID). It is used for dental pain, fever, headaches or migraines, osteoarthritis, rheumatoid arthritis, or painful monthly periods. It can also relieve minor aches and pains caused by a cold, flu, or sore throat. How should I use this medicine? Take this medicine by mouth with a glass of water. Follow the directions on the prescription label. Take this medicine with food if your stomach gets upset. Try to not lie down for at least 10 minutes after you take the medicine. Take your medicine at regular intervals. Do not take your medicine more often than directed. A special MedGuide will be given to you by the pharmacist with each prescription and refill. Be sure to read this information carefully each time. Talk to your senior science consultant regarding the use of this medicine in children. Special care may be needed. What side effects may I notice from receiving this medicine? Side effects that you should report to your doctor or health respiratory care specialist as soon as possible: allergic reactions like skin rash, itching or hives, swelling of the face, lips, or tongue black or bloody stools, blood in the urine or in vomit breathing problems changes in vision chest pain general ill feeling or flu-like symptoms nausea or vomiting redness, blistering, peeling or loosening of the skin, including inside the mouth slurred speech or weakness on one side of the body stomach pain unexplained weight gain or swelling unusually weak or tired yellowing of eyes or skin Side effects that usually do not require medical attention (report to your doctor or health respiratory care specialist if they continue or are bothersome): constipation or diarrhea dizziness gas or heartburn stomach upset What may interact with this medicine? Do not take this medicine with any of the following medications: cidofovir ketorolac methotrexate pemetrexed This medicine may also interact with the following medications: alcohol aspirin diuretics lithium other drugs for inflammation like prednisone warfarin What if I miss a dose? If you miss a dose, take it as soon as you can. If it is almost time for your next dose, take only that dose. Do not take double or extra doses. Where should I keep my medicine? Keep out of the reach of children. Store at room temperature between 15 and 30 degrees C (59 and 86 degrees F). Keep container tightly closed. Throw away any unused medicine after the expiration date. What should I tell my health care provider before I take this medicine? They need to know if you have any of these conditions: asthma cigarette smoker drink more than 3 alcohol containing drinks a day heart disease or circulation problems such as heart failure or leg edema (fluid retention) high blood pressure kidney disease liver disease stomach bleeding or ulcers an unusual or allergic reaction to ibuprofen, aspirin, other NSAIDS, other medicines, foods, dyes, or preservatives or trying to get breast-feeding What should I watch for while using this medicine? Tell your doctor or healthcare professional if your symptoms do not start to get better or if they get worse. This medicine does not prevent heart attack or stroke. In fact, this medicine may increase the chance of a heart attack or stroke. The chance may increase with longer use of this medicine and in people who have heart disease. If you take aspirin to prevent heart attack or stroke, talk with your doctor or health respiratory care specialist. Do not take other medicines that contain aspirin, ibuprofen, or naproxen with this medicine. Side effects such as stomach upset, nausea, or ulcers may be more likely to occur. Many medicines available without a prescription should not be taken with this medicine. This medicine can cause ulcers and bleeding in the stomach and intestines at any time during treatment. Ulcers and bleeding can happen without warning symptoms and can cause . To reduce your risk, do not smoke cigarettes or drink alcohol while you are taking this medicine. You may get drowsy or dizzy. Do not drive, use machinery, or do anything that needs mental alertness until you know how this medicine affects you. Do not stand or sit up quickly, especially if you are an older patient. This reduces the risk of dizzy or fainting spells. This medicine can cause you to bleed more easily. Try to avoid damage to your teeth and gums when you brush or floss your teeth. Acetaminophen Oral tablet What is this medicine? ACETAMINOPHEN (a set a NIALL elza fen) is a pain reliever. It is used to treat mild pain and fever. How should I use this medicine? Take this medicine by mouth with a glass of water. Follow the directions on the package or prescription label. Take your medicine at regular intervals. Do not take your medicine more often than directed. Talk to your senior science consultant regarding the use of this medicine in children. While this drug may be prescribed for children as young as 6 years of age for selected conditions, precautions do apply. What side effects may I notice from receiving this medicine? Side effects that you should report to your doctor or health respiratory care specialist as soon as possible: allergic reactions like skin rash, itching or hives, swelling of the face, lips, or tongue breathing problems fever or sore throat redness, blistering, peeling or loosening of the skin, including inside the mouth trouble passing urine or change in the amount of urine unusual bleeding or bruising unusually weak or tired yellowing of the eyes or skin Side effects that usually do not require medical attention (report to your doctor or health respiratory care specialist if they continue or are bothersome): headache nausea, stomach upset What may interact with this medicine? alcohol imatinib isoniazid other medicines with acetaminophen What if I miss a dose? If you miss a dose, take it as soon as you can. If it is almost time for your next dose, take only that dose. Do not take double or extra doses. Where should I keep my medicine? Keep out of reach of children. Store at room temperature between 20 and 25 degrees C (68 and 77 degrees F). Protect from moisture and heat. Throw away any unused medicine after the expiration date. What should I tell my health care provider before I take this medicine? They need to know if you have any of these conditions: if you frequently drink alcohol containing drinks liver disease an unusual or allergic reaction to acetaminophen, other medicines, foods, dyes or preservatives or trying to get breast-feeding What should I watch for while using this medicine? Tell your doctor or health respiratory care specialist if the pain lasts more than 10 days (5 days for children), if it gets worse, or if there is a new or different kind of pain. Also, check with your doctor if a fever lasts for more than 3 days. Do not take other medicines that contain acetaminophen with this medicine. Always read labels carefully. If you have questions, ask your doctor or pharmacist. If you take too much acetaminophen get medical help right away. Too much acetaminophen can be very dangerous and cause liver damage. Even if you do not have symptoms, it is important to get help right away. You have been given the following additional information: HEAD INJURY, No Wake-Up (Adult) Concussion, No Wake-Up Ondansetron Oral disintegrating tablet Ibuprofen Oral tablet Acetaminophen Oral tablet (Electronically signed by Helena Edge P.A.-C 11/26/2016 14:14)
--- NOTE | 2016-11-26 14:32 | ED MAR SUMMARY ---
..... Medication Administration Record [facility] [address] [place] [address] Patient: LINDA CISNEROS Visit ID: [id number] 46y, F Weight: 53.5 kg Height/Length: 60 in BMI: 23 ALLERGIES: No Known Drug Allergy Given 14:11/26/2016 Chuyita Plascencia, Medication Administered: ZOFRAN ODT [PO] (ONDANSETRON), Dose: 4 mg PO. Medication Ordered: Zofran ODT PO 4 mg (NOW). Given 14:11/26/2016 Chuyita Plascencia, Medication Administered: MOTRIN [PO], Dose: 800 mg PO. Medication Ordered: Motrin PO 800 mg (NOW). Given 14:11/26/2016 Chuyita Plascencia, Medication Administered: TYLENOL [PO] (ACETAMINOPHEN), Dose: 650 mg PO. Medication Ordered: Tylenol PO 650 mg (NOW).
--- NOTE | 2016-11-26 14:32 | ED MAR SUMMARY ---
..... Medication Administration Record [facility] [address] [place] [address] Patient: LINDA CISNEROS Visit ID: [id number] 46y, F Weight: 53.5 kg Height/Length: 60 in BMI: 23 ALLERGIES: No Known Drug Allergy Given 14:11/26/2016 Chuyita Plascencia, Medication Administered: ZOFRAN ODT [PO] (ONDANSETRON), Dose: 4 mg PO. Medication Ordered: Zofran ODT PO 4 mg (NOW). Given 14:11/26/2016 Chuyita Plascencia, Medication Administered: MOTRIN [PO], Dose: 800 mg PO. Medication Ordered: Motrin PO 800 mg (NOW). Given 14:11/26/2016 Chuyita Plascencia, Medication Administered: TYLENOL [PO] (ACETAMINOPHEN), Dose: 650 mg PO. Medication Ordered: Tylenol PO 650 mg (NOW).
== END 2016-11-26 14:30 | disposition home or self-care (01) ==
LOC: ED SRH 12:59
DX: S09.90XA Unspecified injury of head, initial encounter (principal); W01.198A Fall on same level from slipping, tripping and stumbling with subsequent striking against other object, initial encounter; Y93.9 Activity, unspecified; Y92.9 Unspecified place or not applicable; Y99.9 Unspecified external cause status

== ENCOUNTER 2017-03-21 07:43 | Outpatient (CLI) | payer BC ==
--- NOTE | 2017-03-21 17:06 | DIAGNOSTIC IMAGING REPORT ---
PROCEDURE: MG BILATERAL SCREENING W/CAD INDICATION: Screening, personal history of left breast cyst biopsy. TECHNIQUE: Standard CC and MLO views bilaterally. Computer aided detection was used. COMPARISON: 02/07/2015, 02/07/2014, 02/07/2013 FINDINGS: Dense fibroglandular tissue is present bilaterally. No developing densities, areas of architectural distortion, or suspicious microcalcifications. IMPRESSION: 1. Stable mammograms without radiographic evidence of malignancy. RESULT CODE: 1- Negative. A. A negative report should not delay biopsy if a dominant or clinically suspicious mass is present. 10-15% of cancers are not identified by x-ray. B. A negative report may reinforce clinical impression. C. Adenosis and dense breasts may obscure an underlying neoplasm. D. False positive reports average 6-10%. E.. A yearly screening mammogram is recommended. A reminder letter will be scheduled.
== END 2017-03-21 23:00 ==
LOC: MAM SRH 07:43
DX: Z12.31 Encounter for screening mammogram for malignant neoplasm of breast (principal); Z98.890 Other specified postprocedural states

== ENCOUNTER 2017-05-21 14:55 | Emergency (ER) | payer BC, OTHER ==
--- NOTE | 2017-05-21 16:31 | DIAGNOSTIC IMAGING REPORT ---
PROCEDURE: XR CHEST 1 VIEW INDICATION: CHEST PAIN TECHNIQUE: Portable AP view 03:46 p.m. COMPARISON: Chest x-ray 12/06/2013 FINDINGS: Lungs are clear. Heart and mediastinum are normal. Thorax is normal. No significant interval change. IMPRESSION: 1. Negative chest.
--- NOTE | 2017-05-21 16:33 | ED NURSING NOTES ---
Clinical Report - Nurses [facility] [place] [address] 05/21/2017 14:55 [facility]: [id number] TRI[facility] Triage time 15:00. Acuity: LEVEL 2. Chief Complaint: CHEST DISCOMFORT. Alert. No acute distress. SEPSIS SCREEN: Sepsis Screen. Negative (no infection suspected/documented). Heart rate not greater than 90. Respiratory rate not greater than 20. RENE COMA SCORE: Rene Coma Scale: 15- eyes open spontaneously (4); best verbal response- oriented x 4 (5); best motor response- obeys commands (6). --15:06 Zaria Bradford R.N. 15:00 05/21/17. BP: 121/82. HR: 77. RR: 14. O2 saturation: 99% on room air. Temp: 98.1 F (oral). Pain level now 0/10. --15:06 Zaria Bradford R.N. Weight: 53 kg stated. Height/Length: 60 inches Per Patient. BMI: 22.8. --15:04 Zaria Bradford R.N. Medications None. --15:02 Zaria Bradford R.N. Medication/allergy information source: the patient. --15:06 Zaria Bradford R.N. Allergies No Known Drug Allergy. --15:03 Zaria Bradford R.N. History Arrived by private vehicle. Historian: patient. Primary physician (joel). ( pt states she has had chest tightness and "throat constriction" for 2 weeks. She states she has a hard time breathing due to her air conditioner. States she felt like she was having a seasonal allergy reaction). Onset. (2 weeks ago). 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 PAST MEDICAL HX: Last normal menstrual period was 4 weeks ago. Sexual partner has had a vasectomy. Denies current . SOCIAL HX: Former smoker, end date 2003. No alcohol use or drug use. ABUSE ASSESSMENT: Abuse assessment: The patient was asked "Do you feel safe in your home?". No report of abuse. SELF HARM ASSESSMENT: A self harm assessment was performed. The patient answered "no" to the question "Do you have thoughts of harming or killing yourself?" and "Have you recently had thoughts about harming or killing others?". FALL RISK ASSESSMENT: Fall risk assessment completed. No fall risk identified. NUTRITIONAL RISK ASSESSMENT: The nutritional risk assessment revealed no deficiencies. FUNCTIONAL ASSESSMENT: Functional assessment: no impairments noted. LEARNING NEEDS ASSESSMENT: The learning needs assessment revealed no barriers. SKIN INTEGRITY ASSESSMENT: Skin integrity risk assessment completed. No skin integrity risk identified. --15:06 Zaria Bradford R.N. PROBLEMS: Nausea. Head Injury. Migraine Headache. Paresthesia. Abdominal Pain. Ovarian Cyst. Atypical Chest Pain. Headache. Loss of Vision. Vertigo. Anxiety Reaction. Constipation. --15:03 Zaria Bradford R.N. ADDITIONAL SURGERIES: Bunion removal. Colonoscopy. . --15:03 Zaria Bradford R.N. Interventions ID band on patient. To treatment room. --15:06 Zaria Bradford R.N. PHYSICAL ASSESSMENT 15:07 05/21/17. Ambulatory to room. GENERAL / NEURO / PSYCH: Alert. Oriented X 4. Appears in no acute distress. RESPIRATORY: Respirations not labored. CVS: Normal sinus rhythm noted. Pulses within normal limits. GI / : Abdomen soft and nontender. EXTREMITIES: No lower extremity edema. SKIN: Skin is warm and dry. --15:07 Zaria Bradford R.N. NURSING PROGRESS NOTES 15:04 05/21/2017 Site #1 started via IV in the right wrist with an 20g angiocath, with aseptic technique and good blood return; one attempt. Blood drawn: rainbow set. Labeled in the presence of the patient and sent to the lab. Saline lock flushed with 10 mL saline. --15:07 Zaria Bradford R.N. The plan of care for this patient has been created. Patient gowned. Head of bed elevated. Call light placed in reach. Bed placed in lowest position. Brakes of bed on. --15:07 Zaria Bradford R.N. Cardiac rhythm: normal sinus rhythm. --15:07 Zaria Bradford R.N. 15:08 05/21/2017 Aspirin PO Tablets 324 mg given. Allergies verified and confirmed 5 rights. --15:10 Zaria Bradford R.N. 15:03. EKG was performed by a tech and shown to the ED physician. --15:29 McQuoid, Carri, ER Tech1 The patient is calm and resting quietly. Overall patient status- she states feels worse. ( MD notified that pt states she feels worse). --16:03 Zaria Bradford R.N. 16:02 05/21/17. BP: 114/64. HR: 70. RR: 14. O2 saturation: 100%. Pain level now 0/10. --16:03 Zaria Bradford R.N. DISPOSITION / DISCHARGE 16:54 05/21/17. Departure time: 1644. Condition at departure: improved and stable. No learning barriers present. Discharge instructions provided and reviewed with the patient. Patient verbalized understanding. Written instructions provided in Turkish. The patient was discharged by the physician. She was discharged home. She left the Emergency Department ambulatory and via private vehicle. Patient driving. --16:54 Zaria Bradford R.N. 16:52 05/21/17. BP: 103/67. HR: 68. RR: 16. O2 saturation: 96% on room air. Temp: 98.2 F (oral). Pain level now 0/10. --16:54 Zaria Bradford R.N. Locked/Released at 05/22/2017 9:36 by Zaria Bradford R.N.
--- NOTE | 2017-05-21 16:33 | ED ORDER SUMMARY ---
..... Patient: LINDA CISNEROS OrderSheet [facility] VisitID: [id number] [place] [address] 46y, F Registration Date/Time: 05/21/2017 ORDER SHEET Weight: 53.0 kg (stated) Allergies: No Known Drug Allergy GENERAL ORDERS: Chest 1V Urgent (14:59 05/21/2017 Eugenio POON) (Ack 15:15 AMcQuoid ER Tech1) (15:59 KWilliams R.N.) Cook Vegetable (Continuous) (14:59 05/21/2017 Eugenio POON) (15:07 KWilliams R.N.) (15:08 AMcQuoid ER Tech1) CBC w Diff Urgent (15:00 05/21/2017 Eugenio POON) (15:11 KWilliams R.N.) (Ack 15:15 AMcQuoid ER Tech1) CMP Urgent (15:00 05/21/2017 Eugenio POON) (15:11 KWilliams R.N.) (Ack 15:15 AMcQuoid ER Tech1) UA-Culture if indicated Urgent (15:00 05/21/2017 Eugenio POON) (Ack 15:15 AMcQuoid ER Tech1) D-Dimer Urgent (15:00 05/21/2017 Eugenio POON) (15:11 KWilliams R.N.) (Ack 15:15 AMcQuoid ER Tech1) Amylase Urgent (15:00 05/21/2017 Eugenio POON) (15:11 KWilliams R.N.) (Ack 15:15 AMcQuoid ER Tech1) Lipase Urgent (15:00 05/21/2017 Eugenio POON) (15:11 KWilliams R.N.) (Ack 15:15 AMcQuoid ER Tech1) CPK Urgent (15:00 05/21/2017 Eugenio POON) (15:11 KWilliams R.N.) (Ack 15:15 AMcQuoid ER Tech1) Troponin-I Urgent (15:00 05/21/2017 Eugenio POON) (15:11 KWilliams R.N.) (Ack 15:15 AMcQuoid ER Tech1) BNP Urgent (15:00 05/21/2017 Eugenio POON) (15:11 KWilliams R.N.) (Ack 15:15 AMcQuoid ER Tech1) Urine Urgent (15:00 05/21/2017 Eugenio POON) (15:11 KWilliams R.N.) (Ack 15:15 AMcQuoid ER Tech1) Oxygen (2 L/min) (NC) (15:00 05/21/2017 Eugenio POON) (15:08 AMcQuoid ER Tech1) (15:11 KWilliams R.N.) Pulse oximeter (15:00 05/21/2017 Eugenio POON) (15:08 AMcQuoid ER Tech1) (15:11 KWilliams R.N.) EKG - ER Stat (15:00 05/21/2017 Eugenio POON) (15:08 AMcQuoid ER Tech1) (15:11 KWilliams R.N.) MEDICATION ORDERS: Aspirin PO 325 mg (Do not crush or chew, NOW) (14:59 05/21/2017 Eugenio POON) (15:10 KWilliams R.N.) IV FLUIDS: IV Saline Lock (15:00 05/21/2017 Eugenio POON) (15:11 KWilliams R.N.) ORDER SHEET NOTES: [Electronically signed by Lucho Mcdonald MD (17:16 05/21/2017)] [Electronically signed by Zaria Bradford R.N. (09:36 05/22/2017)] [Electronically locked/signed by Zaria Bradford R.N. (09:36 05/22/2017)]
--- NOTE | 2017-05-21 16:33 | ED ORDER SUMMARY ---
..... Patient: LINDA CISNEROS OrderSheet [facility] VisitID: [id number] [place] [address] 46y, F Registration Date/Time: 05/21/2017 ORDER SHEET Weight: 53.0 kg (stated) Allergies: No Known Drug Allergy GENERAL ORDERS: Chest 1V Urgent (14:59 05/21/2017 Eugenio POON) (Ack 15:15 AMcQuoid ER Tech1) (15:59 KWilliams R.N.) Stone Processing Machine Operator (Continuous) (14:59 05/21/2017 Eugenio POON) (15:07 KWilliams R.N.) (15:08 AMcQuoid ER Tech1) CBC w Diff Urgent (15:00 05/21/2017 Eugenio POON) (15:11 KWilliams R.N.) (Ack 15:15 AMcQuoid ER Tech1) CMP Urgent (15:00 05/21/2017 Eugenio POON) (15:11 KWilliams R.N.) (Ack 15:15 AMcQuoid ER Tech1) UA-Culture if indicated Urgent (15:00 05/21/2017 Eugenio POON) (Ack 15:15 AMcQuoid ER Tech1) D-Dimer Urgent (15:00 05/21/2017 Eugenio POON) (15:11 KWilliams R.N.) (Ack 15:15 AMcQuoid ER Tech1) Amylase Urgent (15:00 05/21/2017 Eugenio POON) (15:11 KWilliams R.N.) (Ack 15:15 AMcQuoid ER Tech1) Lipase Urgent (15:00 05/21/2017 Eugenio POON) (15:11 KWilliams R.N.) (Ack 15:15 AMcQuoid ER Tech1) CPK Urgent (15:00 05/21/2017 Eugenio POON) (15:11 KWilliams R.N.) (Ack 15:15 AMcQuoid ER Tech1) Troponin-I Urgent (15:00 05/21/2017 Eugenio POON) (15:11 KWilliams R.N.) (Ack 15:15 AMcQuoid ER Tech1) BNP Urgent (15:00 05/21/2017 Eugenio POON) (15:11 KWilliams R.N.) (Ack 15:15 AMcQuoid ER Tech1) Urine Urgent (15:00 05/21/2017 Eugenio POON) (15:11 KWilliams R.N.) (Ack 15:15 AMcQuoid ER Tech1) Oxygen (2 L/min) (NC) (15:00 05/21/2017 Eugenio POON) (15:08 AMcQuoid ER Tech1) (15:11 KWilliams R.N.) Pulse oximeter (15:00 05/21/2017 Eugenio POON) (15:08 AMcQuoid ER Tech1) (15:11 KWilliams R.N.) EKG - ER Stat (15:00 05/21/2017 Eugenio OPON) (15:08 AMcQuoid ER Tech1) (15:11 KWilliams R.N.) MEDICATION ORDERS: Aspirin PO 325 mg (Do not crush or chew, NOW) (14:59 05/21/2017 Eugenio POON) (15:10 KWilliams R.N.) IV FLUIDS: IV Saline Lock (15:00 05/21/2017 Eugenio POON) (15:11 KWilliams R.N.) ORDER SHEET NOTES: [Electronically signed by Lucho Mcdonald MD (17:16 05/21/2017)] [Electronically signed by Zaria Bradford R.N. (09:36 05/22/2017)] [Electronically locked/signed by Zaria Bradford R.N. (09:36 05/22/2017)]
--- NOTE | 2017-05-21 16:33 | ED CLINICAL REPORT ---
Clinical Report - Physicians/Mid Levels [facility] [address] [place] [address] 05/21/2017 14:55 Patient: LINDA CISNEROS Time Seen: 14:58. Arrived- By private vehicle. Historian- patient. HISTORY OF PRESENT ILLNESS Chief Complaint: DYSPNEA. This started several weeks ago as tightness in her throat and is still present. It was gradual in onset and has been waxing/waning. The dyspnea is described as mild. No cough, sputum production, fever, sweating episodes or wheezing. No dyspnea on exertion, calf pain or foot swelling. She has had chills. She has had chest tightness (since 1 week ago). (she reports that for several weeks she has had a tickling in her throat. She over the past week has developed a tightness when she breathes. She wonders if this is because her recently installed a dehumidifier.). Recent medical care: The patient was seen recently at another facility in a clinic. Seen for other problems. ( She underwent an echocardiogram on May 04, 2017 because of palpitations. This was done by Dr. Be and the patient says that it was normal). REVIEW OF SYSTEMS No chills, fatigue, fever, sweats or calf pain. No cough, pedal edema, palpitations, abdominal pain or black stools. No bloody stools, constipation, diarrhea, nausea or vomiting. No urinary problems. All systems otherwise negative, except as recorded above. PAST HISTORY Problems: Nausea. Head Injury. Migraine Headache. Paresthesia. Abdominal Pain. Ovarian Cyst. Atypical Chest Pain. Headache. Loss of Vision. Vertigo. Anxiety Reaction. Constipation. Additional Surgeries: Bunion removal. Colonoscopy. . Medications: None. Allergies: No Known Drug Allergy. SOCIAL HISTORY Former smoker, end date 1996. No alcohol use or drug use. FAMILY HISTORY Diabetes in first-degree relative (mother); asthma in first-degree relative (mother); cancer in first-degree relative (mother). ADDITIONAL NOTES The nursing notes have been reviewed. PHYSICAL EXAM Vital Signs: 05/21/2017 15:00 BP: 121/82. HR: 77. RR: 14. O2 saturation: 99%. Temp: 98.1 F. Have been reviewed. Appearance: Anxious. Eyes: Pupils equal, round and reactive to light. ENT: Pharynx normal. Neck: Normal inspection. No jugular venous distention. Neck supple. CVS: Normal heart rate and rhythm. Heart sounds normal. Respiratory: No respiratory distress. Breath sounds normal. Abdomen: Soft and nontender. No organomegaly. Back: Normal inspection. Skin: Skin warm and dry. Normal skin color. Normal skin turgor. Extremities: Extremities exhibit normal ROM. No calf tenderness. No lower extremity edema. Neuro: No motor deficit. No sensory deficit. LABS, X-RAYS, AND EKG EKG: Normal EKG. Rate: 79. Prior EKG unavailable. The study has been independently viewed by me. Chest X-ray: No acute disease. Laboratory Tests: CBC w Diff: (DANIELLE: 05/21/2017 15:00) ( [facility] 05/21/2017 16:00) Final results Test Result Flag Units (Reference) WHITE BLOOD COUNT 6.0 K/uL (4.5-11.5) RED BLOOD COUNT 4.21 M/uL (4.00-5.20) HEMOGLOBIN 14.2 gm/dL (12.0-16.0) HEMATOCRIT 41.7 % (36.0-46.0) MEAN CELL VOLUME 99 fL (80-100) MEAN CORPUSCULAR HGB 34 pg (26-34) MEAN CORPUSCULAR HGB CONC 34 g/dL (31-37) RED CELL DISTRIBUTION WIDTH 13.0 % (11.6-14.8) PLATELET COUNT 197 K/uL (150-400) NEUTROPHIL % 51.6 % (50-75) LYMPH % 37.0 % (25-40) MONO % 8.2 % (3-14) EOSINOPHIL % 2.2 % (0-4) BASOPHIL % 1.0 % (0-2) [id number]: (DANIELLE: 05/21/2017 15:00) ( OhgRcvd 05/21/2017 15:33) Final results Test Result Flag Units (Reference) D-DIMER QUANTITATIVE < 0.27 L ug/mLFEU (0.27-0.52) The primary value of this quantitative assay relates toits negative predictive value (i.e. exclusion) of pulmonaryembolism/deep vein thrombosis/DIC.Elevated levels of d-dimer may also occur with:, age, cancer, inflammation, liver disease,post-op, infection, hematoma, coronary disease, peripheralarteriopathy, bleeding disorders and thrombolytic treatment.Results should be correlated with other clinical andradiological data.Testing Methodology: Latex Immunoassay BNP: (DANIELLE: 05/21/2017 15:00) ( MsgRcvd 05/21/2017 15:45) Final results Test Result Flag Units (Reference) B-TYPE NATRIURETIC PEPTIDE 24.4 pg/ml (5-100) CMP: (DANIELLE: 05/21/2017 15:00) ( MsgRcvd 05/21/2017 15:58) IP Test Result Flag Units (Reference) GLUCOSE 91 mg/dL (70-110) BUN 13 mg/dL (7-18) CREATININE 0.7 mg/dL (0.6-1.3) Estimated GFR >60 mL/min Estimated GFR- >60 mL/min Note: Persistent reduction over 3 months in eGFR<60 mL/min/1.73 m2 defines CKD. Patients with eGFR values>=60 mL/min/1.73 m2 may also have CKD if evidence ofpersistent proteinuria. Additional information may be foundat www.kidney.org. SODIUM 141 mmol/L (136-145) POTASSIUM 3.5 mmol/L (3.5-5.1) CHLORIDE 105 mmol/L (98-107) CARBON DIOXIDE 28 mmol/L (21-32) TOTAL PROTEIN 7.9 g/dL (6.4-8.2) ALBUMIN 4.4 g/dL (3.3-5.0) BILIRUBIN, TOTAL 0.4 mg/dL (0.0-1.0) ALKALINE PHOSPHATASE 57 U/L (46-116) AST (SGOT) 19 U/L (15-37) ALT (SGPT) 34 U/L (12-78) LIPASE 152 U/L (73-393) AMYLASE 62 U/L (25-115) CPK 102 U/L (24-260) TROPONIN I <0.05 L ng/mL (0.00-1.5) TROPONIN REFERENCE RANGE:<0.1 NEGATIVE0.1-1.5 INDETERMINANT>1.5 POSITIVE . PROGRESS AND PROCEDURES Course of Care: Patient is stable. Patient/family counseled. Old medical records reviewed. (from [place]). Disposition: Discharged. Condition: stable. CLINICAL IMPRESSION Anxiety reaction. seasonal allergies. INSTRUCTIONS Warnings: Further evaluation is necessary. GENERAL WARNINGS: Return or contact your physician immediately if your condition worsens or changes unexpectedly, if not improving as expected, or if other problems arise. Follow-up: Follow up with your doctor in seven days. Call for the next available appointment. Understanding of the discharge instructions verbalized by patient. (Electronically signed by Lucho Mcdonald MD 05/21/2017 17:16)
--- NOTE | 2017-05-21 16:33 | ED CLINICAL REPORT ---
Clinical Report - Physicians/Mid Levels [facility] [address] [place] [address] 05/21/2017 14:55 Patient: LINDA CISNEROS Time Seen: 14:58. Arrived- By private vehicle. Historian- patient. HISTORY OF PRESENT ILLNESS Chief Complaint: DYSPNEA. This started several weeks ago as tightness in her throat and is still present. It was gradual in onset and has been waxing/waning. The dyspnea is described as mild. No cough, sputum production, fever, sweating episodes or wheezing. No dyspnea on exertion, calf pain or foot swelling. She has had chills. She has had chest tightness (since 1 week ago). (she reports that for several weeks she has had a tickling in her throat. She over the past week has developed a tightness when she breathes. She wonders if this is because her recently installed a dehumidifier.). Recent medical care: The patient was seen recently at another facility in a clinic. Seen for other problems. ( She underwent an echocardiogram on May 04, 2017 because of palpitations. This was done by Dr. Be and the patient says that it was normal). REVIEW OF SYSTEMS No chills, fatigue, fever, sweats or calf pain. No cough, pedal edema, palpitations, abdominal pain or black stools. No bloody stools, constipation, diarrhea, nausea or vomiting. No urinary problems. All systems otherwise negative, except as recorded above. PAST HISTORY Problems: Nausea. Head Injury. Migraine Headache. Paresthesia. Abdominal Pain. Ovarian Cyst. Atypical Chest Pain. Headache. Loss of Vision. Vertigo. Anxiety Reaction. Constipation. Additional Surgeries: Bunion removal. Colonoscopy. . Medications: None. Allergies: No Known Drug Allergy. SOCIAL HISTORY Former smoker, end date 1996. No alcohol use or drug use. FAMILY HISTORY Diabetes in first-degree relative (mother); asthma in first-degree relative (mother); cancer in first-degree relative (mother). ADDITIONAL NOTES The nursing notes have been reviewed. PHYSICAL EXAM Vital Signs: 05/21/2017 15:00 BP: 121/82. HR: 77. RR: 14. O2 saturation: 99%. Temp: 98.1 F. Have been reviewed. Appearance: Anxious. Eyes: Pupils equal, round and reactive to light. ENT: Pharynx normal. Neck: Normal inspection. No jugular venous distention. Neck supple. CVS: Normal heart rate and rhythm. Heart sounds normal. Respiratory: No respiratory distress. Breath sounds normal. Abdomen: Soft and nontender. No organomegaly. Back: Normal inspection. Skin: Skin warm and dry. Normal skin color. Normal skin turgor. Extremities: Extremities exhibit normal ROM. No calf tenderness. No lower extremity edema. Neuro: No motor deficit. No sensory deficit. LABS, X-RAYS, AND EKG EKG: Normal EKG. Rate: 79. Prior EKG unavailable. The study has been independently viewed by me. Chest X-ray: No acute disease. Laboratory Tests: CBC w Diff: (DANIELLE: 05/21/2017 15:00) ( [facility] 05/21/2017 16:00) Final results Test Result Flag Units (Reference) WHITE BLOOD COUNT 6.0 K/uL (4.5-11.5) RED BLOOD COUNT 4.21 M/uL (4.00-5.20) HEMOGLOBIN 14.2 gm/dL (12.0-16.0) HEMATOCRIT 41.7 % (36.0-46.0) MEAN CELL VOLUME 99 fL (80-100) MEAN CORPUSCULAR HGB 34 pg (26-34) MEAN CORPUSCULAR HGB CONC 34 g/dL (31-37) RED CELL DISTRIBUTION WIDTH 13.0 % (11.6-14.8) PLATELET COUNT 197 K/uL (150-400) NEUTROPHIL % 51.6 % (50-75) LYMPH % 37.0 % (25-40) MONO % 8.2 % (3-14) EOSINOPHIL % 2.2 % (0-4) BASOPHIL % 1.0 % (0-2) [id number]: (DANIELLE: 05/21/2017 15:00) ( NhgRcvd 05/21/2017 15:33) Final results Test Result Flag Units (Reference) D-DIMER QUANTITATIVE < 0.27 L ug/mLFEU (0.27-0.52) The primary value of this quantitative assay relates toits negative predictive value (i.e. exclusion) of pulmonaryembolism/deep vein thrombosis/DIC.Elevated levels of d-dimer may also occur with:, age, cancer, inflammation, liver disease,post-op, infection, hematoma, coronary disease, peripheralarteriopathy, bleeding disorders and thrombolytic treatment.Results should be correlated with other clinical andradiological data.Testing Methodology: Latex Immunoassay BNP: (DANIELLE: 05/21/2017 15:00) ( MsgRcvd 05/21/2017 15:45) Final results Test Result Flag Units (Reference) B-TYPE NATRIURETIC PEPTIDE 24.4 pg/ml (5-100) CMP: (DANIELLE: 05/21/2017 15:00) ( MsgRcvd 05/21/2017 15:58) IP Test Result Flag Units (Reference) GLUCOSE 91 mg/dL (70-110) BUN 13 mg/dL (7-18) CREATININE 0.7 mg/dL (0.6-1.3) Estimated GFR >60 mL/min Estimated GFR- >60 mL/min Note: Persistent reduction over 3 months in eGFR<60 mL/min/1.73 m2 defines CKD. Patients with eGFR values>=60 mL/min/1.73 m2 may also have CKD if evidence ofpersistent proteinuria. Additional information may be foundat www.kidney.org. SODIUM 141 mmol/L (136-145) POTASSIUM 3.5 mmol/L (3.5-5.1) CHLORIDE 105 mmol/L (98-107) CARBON DIOXIDE 28 mmol/L (21-32) TOTAL PROTEIN 7.9 g/dL (6.4-8.2) ALBUMIN 4.4 g/dL (3.3-5.0) BILIRUBIN, TOTAL 0.4 mg/dL (0.0-1.0) ALKALINE PHOSPHATASE 57 U/L (46-116) AST (SGOT) 19 U/L (15-37) ALT (SGPT) 34 U/L (12-78) LIPASE 152 U/L (73-393) AMYLASE 62 U/L (25-115) CPK 102 U/L (24-260) TROPONIN I <0.05 L ng/mL (0.00-1.5) TROPONIN REFERENCE RANGE:<0.1 NEGATIVE0.1-1.5 INDETERMINANT>1.5 POSITIVE . PROGRESS AND PROCEDURES Course of Care: Patient is stable. Patient/family counseled. Old medical records reviewed. (from [place]). Disposition: Discharged. Condition: stable. CLINICAL IMPRESSION Anxiety reaction. seasonal allergies. INSTRUCTIONS Warnings: Further evaluation is necessary. GENERAL WARNINGS: Return or contact your physician immediately if your condition worsens or changes unexpectedly, if not improving as expected, or if other problems arise. Follow-up: Follow up with your doctor in seven days. Call for the next available appointment. Understanding of the discharge instructions verbalized by patient. (Electronically signed by Lucho Mcdonald MD 05/21/2017 17:16)
--- NOTE | 2017-05-22 09:37 | ED MAR SUMMARY ---
..... Medication Administration Record [facility] [address] [place] [address] Patient: LINDA CISNEROS Visit ID: [id number] 46y, F Weight: 53.0 kg Height/Length: 60 in BMI: 22.8 ALLERGIES: No Known Drug Allergy Given 15:08 05/21/2017 Zaria Bradford RBetty Medication Administered: ASPIRIN [PO], Dose: 324 mg Tablets PO. Medication Ordered: Aspirin PO 325 mg (Do not crush or chew, NOW).
--- NOTE | 2017-05-22 09:37 | ED MED RECONCILIATION SUMMARY ---
Patient: LINDA CISNEROS Medication Reconciliation Report [facility] VisitID: [id number] [address] [place] [address] 46y, F Registration Date/Time: 05/21/2017 Weight: 53.0 kg Height/Length: 60 in. BMI: 22.8 ALLERGIES: No Known Drug Allergy The patient's Home Medications are listed below: NONE. The source(s) of the original Home Medication information: patient The following Medications were given to the patient in the Emergency Department: Aspirin [PO] PO 324 mg, administered: 05/21/2017 3:08:00 PM The following Medications were prescribed to the patient: None.
--- NOTE | 2017-05-22 09:37 | ED MAR SUMMARY ---
..... Medication Administration Record [facility] [address] [place] [address] Patient: LINDA CISNEROS Visit ID: [id number] 46y, F Weight: 53.0 kg Height/Length: 60 in BMI: 22.8 ALLERGIES: No Known Drug Allergy Given 15:08 05/21/2017 Zaria Bradford RBetty Medication Administered: ASPIRIN [PO], Dose: 324 mg Tablets PO. Medication Ordered: Aspirin PO 325 mg (Do not crush or chew, NOW).
--- NOTE | 2017-05-22 09:37 | ED MED RECONCILIATION SUMMARY ---
Patient: LINDA CISNEROS Medication Reconciliation Report [facility] VisitID: [id number] [address] [place] [address] 46y, F Registration Date/Time: 05/21/2017 Weight: 53.0 kg Height/Length: 60 in. BMI: 22.8 ALLERGIES: No Known Drug Allergy The patient's Home Medications are listed below: NONE. The source(s) of the original Home Medication information: patient The following Medications were given to the patient in the Emergency Department: Aspirin [PO] PO 324 mg, administered: 05/21/2017 3:08:00 PM The following Medications were prescribed to the patient: None.
--- NOTE | 2017-05-22 09:37 | ED DISCHARGE INSTRUCTIONS ---
Patient: LINDA CISNEROS General Instructions [facility] VisitID: [id number] [place] [address] 46y, F Registration Date/Time: 05/21/2017 Anxiety reaction. seasonal allergies. INSTRUCTIONS Warnings: Further evaluation is necessary. GENERAL WARNINGS: Return or contact your physician immediately if your condition worsens or changes unexpectedly, if not improving as expected, or if other problems arise. Follow-up: Follow up with your doctor in seven days. Call for the next available appointment. Understanding of the discharge instructions verbalized by patient. ADDITIONAL INFORMATION Stress Reaction Anxiety is the feeling we all get when we think something bad might happen. It is a normal response to stress and usually causes only a mild reaction. When anxiety becomes more severe, emotions may interfere with daily life. In some cases, you may not even be aware of what it is youre anxious about! During an anxiety reaction, you may feel like you are helpless, nervous, depressed or irritable. Your body may show signs of anxiety in many ways. You may experience dry mouth, shakiness, dizziness, weakness, trouble breathing, chest pressure, headache, nausea, diarrhea, tiredness, inability to sleep or sexual problems. Home Care: 1) Try to locate the sources of stress in your life. They may not be obvious! These may include: -- Daily hassles of life which pile up (traffic jams, missed appointments, car troubles, etc.) -- Major life changes, both good (new baby, job promotion) and bad (loss of job, loss of loved one) -- Overload: feeling that you have too many responsibilities and can't take care of all of them at once -- Feeling helpless, feeling that your problems are beyond what youre able to solve 2) Notice how your body reacts to stress. Learn to listen to your body signals. This will help you take action before the stress becomes severe. 3) When you can, do something about the source of your stress. (Avoid hassles, limit the amount of change that happens in your life at one time and take a break when you feel overloaded). 4) Unfortunately, many stressful situations cannot be avoided. It is necessary to learn HOW TO MANAGE STRESS better. There are many proven methods that will reduce your anxiety. These include simple things like exercise, good nutrition and adequate rest. Also, there are certain techniques that are helpful: relaxation and breathing exercises, visualization, biofeedback and meditation. For more information about this, consult your doctor or go to a local bookstore and review the many books and tapes available on this subject. Follow Up If you feel that your anxiety is not responding to self-help measures, contact your doctor or make an appointment with a counselor. Get Prompt Medical Attention if any of the following occur: -- Your symptoms get worse -- Chest pain or trouble breathing -- Severe headache not relieved by rest and mild pain reliever -- Rapid or irregular heartbeat, fainting You have been given the following additional information: Anxiety Reaction (Electronically signed by Lucho Mcdonald MD 05/21/2017 17:16)
== END 2017-05-21 16:44 | disposition home or self-care (01) ==
LOC: ED SRH 14:55
DX: F41.1 Generalized anxiety disorder (principal); R06.00 Dyspnea, unspecified; R07.9 Chest pain, unspecified; J30.2 Other seasonal allergic rhinitis; Z87.891 Personal history of nicotine dependence
CPT/HCPCS: 90100; 90616; 91320; 91556; 92235; 92530; 92610; 95059